=== PATIENT | female | born 1970 | race Caucasian/White ===

== ENCOUNTER 2016-10-12 14:44 | Emergency (ER) | payer OTHER ==
[~2016-10-12] VITALS: Ht 157.5 cm; Wt 98.0 kg
[~2016-10-12 14:44] MED LIST: ASPI81TA3 PO; BENA5TAB2 PO; IBUP-1542 PO; MAG355OR15 PO; METF500T PO; METO-407 PO; NITR-58 PO; SIMV-39 PO
[2016-10-12 15:05] VITALS: Ht 157.5 cm; Wt 98.0 kg
[2016-10-12] MEDS ORDERED: morphine 4 MG/ML VIAL IV STA ×2 (15:23→16:03)
[2016-10-12] MEDS ORDERED: FAMOTIDINE 20 MG INJ IV STA (15:23)
[2016-10-12] MEDS ORDERED: ONDANSETRON 4 MG INJ IV STA (15:23)
[2016-10-12] MEDS ORDERED: SOD CHLORIDE 0.9% 500 ML IV STA (15:23)
--- NOTE | 2016-10-12 15:33 | ERA ---
ER Documentation Chief Complaint Date/Time DATE: 10/12/16 TIME: 15:29 Chief Complaint cp pressure HPI Patient is a patient 46-year-old female who presents with sudden onset, constant , severe left-sided chest pain radiating to the left side of her back since 7 AM. She reports that she has had intermittent similar symptoms for the last 3- 4 months. She denies vomiting. She denies fever. She denies cough. She does report pain with deep inspiration. She denies abdominal pain. She reports epigastric pain. According to her son, she has had multiple visits to her PMD, Dr. Ochoa, and he is given her pain medications, but has not explained what the cause of her symptoms is. She is scheduled for a stress test. ROS All systems reviewed and are negative except as per history of present illness. Medications Home Meds Active Scripts Omeprazole* (Omeprazole*) 20 Mg Capsule., 20 MG PO DAILY, #14 Prov:RANDAL BROWN MD 10/12/16 Metoprolol Tartrate* (Lopressor*) 100 Mg Tab, 100 MG PO BID, #60 TAB 2 Refills Prov:MELISSA FRANCISCO MD 05/26/15 Reported Medications Metformin Hcl* (Metformin Hcl*) 500 Mg Tablet, 500 MG PO WITH MEALS, #90 TAB 10/12/16 Amlodipine Besylate* (Amlodipine Besylate*) 10 Mg Tablet, 10 MG PO QHS, #30 TAB 10/12/16 Discontinued Scripts Ibuprofen* (Ibuprofen*) 600 Mg Tablet, 600 MG PO Q8 for PAIN AND/OR INFLAMMATION , #30 TAB Prov:JOE DAVIES MD 09/20/15 Mag Hydrox/Al Hydrox/Simeth (Maalox Ms Liquid) 360 Ml Oral.susp, 2 TSP PO TID for PAIN, #24 OZ Prov:JOE DAVIES MD 09/20/15 Nitrofurantoin Monohyd Macrocr* (Macrobid*) 100 Mg Capsr, 100 MG PO BID for 7 Days, CAP Prov:JOE DAVIES MD 09/20/15 Simvastatin* (Simvastatin*) 80 Mg Tablet, 40 MG PO QHS, #30 TAB 2 Refills Prov:MELISSA FRANCISCO MD 05/26/15 Metformin Hcl (Glucophage) 500 Mg Tab, 1000 MG PO BID WITH MEALS, #60 TAB 2 Refills Prov:MELISSA FRANCISCO MD 05/26/15 Benazepril Hcl* (Benazepril Hcl*) 5 Mg Tab, 5 MG PO BID, #60 TAB 2 Refills Prov:MELISSA FRANCISCO MD 05/26/15 Aspirin (Aspirin) 81 Mg Chew, 81 MG PO DAILY, #30 TAB 5 Refills Prov:MELISSA FRANCISCO MD 05/26/15 Allergies Allergies: Coded Allergies: No Known Allergy (Unverified , 10/12/16) PMhx/Soc Past medical history: Diabetes mellitus, hypertension, hyperlipidemia, hypothyroidism, Kidney stones Past surgical history: Cholecystectomy Social history: Denies tobacco, alcohol or illicit drugs History of Surgery: Yes (dwain nunez 2014) Anesthesia Reaction: No Hx Neurological Disorder: No Hx Respiratory Disorders: No Hx Cardiac Disorders: Yes (htn) Hx Psychiatric Problems: No Hx Miscellaneous Medical Probl: Yes (DM ) Hx Alcohol Use: No Hx Substance Use: No Hx Tobacco Use: No FmHx Family History: diabetes, No coronary disease Physical Exam Vitals Vital Signs Date Time Temp Pulse Resp B/P Pulse Ox O2 Delivery O2 Flow Rate FiO2 10/12/16 17:23 99.1 73 18 152/91 98 Room Air 10/12/16 15:05 99.4 111 24 182/112 98 Physical Exam Const: Alert, in moderate distress Head: Atraumatic Eyes: Normal Conjunctiva, No pallor, no icterus ENT: Normal External Ears, Nose and Mouth .Mucous membranes moist Neck: Full range of motion..~ No meningismus. Resp: Clear to auscultation bilaterally Cardio: Regular rate and rhythm, no murmurs Abd: Soft, Tender in the epigastrium, no guarding or rebound, nondistended. Skin: No petechiae or rashes Back: No midline tenderness, left flank tenderness to light palpation as well as CVA tenderness. Ext: No cyanosis, or edema. 2+ radial pulses with no delay. Neur: Awake and alert, Cranial nerves II through XII intact bilaterally, strength and sensation full in 4 extremities. Psych: Appears anxious Result Diagram: 10/12/16 1535 10/12/16 1535 Results 24 hrs Laboratory Tests Test 10/12/16 15:35 10/12/16 16:15 White Blood Count 11.010^3/ul Red Blood Count 5.2810^6/ul Hemoglobin 15.7g/dl Hematocrit 43.8% Mean Corpuscular Volume 83.0fl Mean Corpuscular Hemoglobin 29.7pg Mean Corpuscular Hemoglobin Concent 35.8g/dl Red Cell Distribution Width 11.9% Platelet Count 64506^3/UL Mean Platelet Volume 9.6fl Neutrophils % 60.7% Lymphocytes % 30.4% Monocytes % 6.8% Eosinophils % 1.2% Basophils % 0.5% Nucleated Red Blood Cells % 0.0/100WBC Neutrophils # (Manual) 6.710^3/ul Lymphocytes # 3.310^3/ul Monocytes # 0.810^3/ul Eosinophils # 0.110^3/ul Basophils # 0.110^3/ul Nucleated Red Blood Cells # 0.010^3/ul Prothrombin Time 11.2Sec Prothrombin Time Ratio 0.9 INR International Normalized Ratio 0.81 Activated Partial Thromboplast Time 26.4Sec D-Dimer 443.30ng/ml D-Dimer Comment Sodium Level 140mmol/L Potassium Level 4.0mmol/L Chloride Level 104mmol/L Carbon Dioxide Level 22mmol/L Anion Gap 18 Blood Urea Nitrogen 20mg/dl Creatinine 0.91mg/dl Glucose Level 168mg/dl Calcium Level 10.2mg/dl Total Bilirubin 0.1mg/dl Direct Bilirubin 0.00mg/dl Indirect Bilirubin 0.1mg/dl Aspartate Amino Transf (AST/SGOT) 22IU/L Alanine Aminotransferase (ALT/SGPT) 30IU/L Alkaline Phosphatase 73IU/L Troponin I < 0.012ng/ml Total Protein 8.4g/dl Albumin 4.8g/dl Globulin 3.60g/dl Albumin/Globulin Ratio 1.33 Lipase 131U/L Thyroid Stimulating Hormone (TSH) 1.010MIU/L Serum HCG, Qualitative NEGATIVE Urine Color STRAW Urine Clarity CLEAR Urine pH 7.0 Urine Specific [place] 1.009 Urine Ketones TRACEmg/dL Urine Nitrite NEGATIVEmg/dL Urine Bilirubin NEGATIVEmg/dL Urine Urobilinogen NEGATIVEmg/dL Urine Leukocyte Esterase NEGATIVELeu/ul Urine Hemoglobin NEGATIVEmg/dL Urine Glucose NEGATIVEmg/dL Urine Total Protein NEGATIVEmg/dl Current Medications Medications (Trade) Dose Ordered Sig/Jose Route PRN Reason Start Time Stop Time Status Last Admin Dose Admin Sodium Chloride (NS) 500 ml @ 500 mls/hr Q1H STAT IV 10/12/16 15:23 10/12/16 16:22 DC 10/12/16 15:36 Morphine Sulfate (morphine) 4 mg ONCE STAT IV 10/12/16 15:23 10/12/16 15:25 DC 10/12/16 15:36 Ondansetron HCl (Zofran Inj) 4 mg ONCE STAT IV 10/12/16 15:23 10/12/16 15:25 DC 10/12/16 15:36 Famotidine (Pepcid Iv) 20 mg ONCE STAT IV 10/12/16 15:23 10/12/16 15:25 DC 10/12/16 15:36 Morphine Sulfate (morphine) 4 mg ONCE STAT IV 10/12/16 16:03 10/12/16 16:08 DC 10/12/16 17:01 Miscellaneous Medication (Gi Cocktail (2)) 40 ml ONCE ONCE PO 10/12/16 17:30 10/12/16 17:31 DC 10/12/16 17:23 Procedures/MDM EKG read by me: Time 1518, rate 101 Rhythm: Sinus tachycardia [place]: Normal Intervals: Normal ST-T waves: no ischemic changes Ectopy: No Q-waves: No Impression: No evidence of ischemia or arrhythmia MDM: Patient is a 46-year-old female who presents with constant epigastric and chest pain for approximately 8 hours. She initially reported that she has had this pain intermittently for the last 3-4 months, and that it is been worse for the last week. She has been seen recently by her PMD 5 days ago and was scheduled for an outpatient cardiology appointment. She has a nonischemic EKG and a negative troponin. There are no features that are concerning for her symptoms are not suggestive of PE or aortic dissection, and her d-dimer is not elevated. Her chest x-ray is unremarkable. She has tenderness in the epigastrium on exam, but normal lipase and LFTs. She is status post cholecystectomy. A CT scan of the abdomen was performed due to history of prior kidney stones, and shows no obstructing kidney stone. The patient does state that after receiving 2 doses of morphine, the patient continued to complain of significant pain, so I discussed the case with the patient's primary physician, Dr. Ochoa. She suggested admitting the patient for pain control and further workup. The patient did not want to be admitted and was planning to sign out AGAINST MEDICAL ADVICE. During discussion about differential diagnosis and risks, the patient stated that she has been having the same pain for the last year and a half. She states that she was scheduled to have an endoscopy 8-9 months ago, but did not follow through with it. She states that the pain is similar to pain that she had with prior kidney stones. Given the chronicity of the patient's pain and her negative workup today, I believe that she can be safely discharged home. I will avoid giving her oral narcotics given her lack of diagnosis. I do believe that she needs close follow -up and I suspect a GI etiology for her pain, such as peptic ulcer disease or gastritis. I will put her on omeprazole. I have advised her to follow-up tomorrow with her PMD, and to return to the ER if her symptoms worsen. On reassessment to discharge, the patient appeared comfortable. Her stated that he believes anxiety is a significant component of her recurrent symptoms. Departure Diagnosis: Primary Impression: Flank pain Additional Impression: Epigastric pain Condition: RANDAL Youssef MD Oct 12, 2016 15:33
[2016-10-12 15:59] LABS: BASOPHIL # 0.1 10^3/ul (0.0-0.1); BASOPHILS % 0.5 % (0.0-2.0); EOSINOPHILS # 0.1 10^3/ul (0.0-0.5); EOSINOPHILS % 1.2 % (0.0-7.0); HEMATOCRIT 43.8 % (37.0-47.0); HEMOGLOBIN 15.7 g/dl (12.0-16.0); LYMPHOCYTES # 3.3 10^3/ul (0.8-2.9); LYMPHOCYTES % 30.4 % (15.0-51.0); MEAN CORPUSCULAR HEMOGLOBIN 29.7 pg (29.0-33.0); MEAN CORPUSCULAR HGB CONC 35.8 g/dl (32.0-37.0); MEAN PLATELET VOLUME 9.6 fl (7.4-10.4); MONOCYTE # 0.8 10^3/ul (0.3-0.9); MONOCYTES % 6.8 % (0.0-11.0); NEUTROPHILS % 60.7 % (39.0-77.0); PLATELET COUNT 375 10^3/UL (140-415); RED BLOOD COUNT 5.28 10^6/ul (4.20-5.40); RED CELL DISTRIBUTION WIDTH 11.9 % (11.5-14.5)
[2016-10-12] MEDS ORDERED: AMLO-147 PO (16:07)
[2016-10-12] MEDS ORDERED: METF500T4 PO (16:07)
--- NOTE | 2016-10-12 16:09 | RADRPT ---
PROCEDURE: Portable chest x-ray. CLINICAL INDICATION: 46 years of age, female. Abdominal pain. TECHNIQUE: Portable AP view of the chest. COMPARISON: May 25, 2015 FINDINGS: Tortuous aorta. Borderline heart size. Decreased lung volumes with vascular crowding versus mild interstitial pulmonary edema. Negative for focal lung consolidation. Negative for pleural effusion or pneumothorax. No acute bony abnormality. Upper abdomen is unremarkable. IMPRESSION: Decreased lung volumes with vascular crowding versus mild edema. RPTAT: HCTS Physician Tiffanie Date Time Electronically viewed and signed by Physician Tiffanie on 10/12/2016 16:08 /
[2016-10-12 16:15] LABS: INR 0.81; PARTIAL THROMBOPLASTIN TIME 26.4 Sec (25.0-35.0); PROTIME 11.2 Sec (12.2-14.2); PT RATIO 0.9
[2016-10-12 16:16] LABS: ALANINE AMINOTRANSFERASE 30 IU/L (13-69); ALBUMIN 4.8 g/dl (3.3-4.9); ALBUMIN/GLOBULIN RATIO 1.33; ALKALINE PHOSPHATASE 73 IU/L (42-121); ANION GAP 18 (8-16); ASPARTATE AMINO TRANSFERASE 22 IU/L (15-46); BILIRUBIN,INDIRECT 0.1 mg/dl (0-1.1); BILIRUBIN,TOTAL 0.1 mg/dl (0.2-1.3); BLOOD UREA NITROGEN 20 mg/dl (7-20); CALCIUM 10.2 mg/dl (8.4-10.2); CARBON DIOXIDE 22 mmol/L (21-31); CHLORIDE 104 mmol/L (97-110); CREATININE 0.91 mg/dl (0.44-1.00); GLUCOSE 168 mg/dl (70-220); SODIUM 140 mmol/L (135-144); TOTAL PROTEIN 8.4 g/dl (6.1-8.1)
[2016-10-12 16:34] LABS: TROPONIN-I < 0.012 ng/ml (0.00-0.12)
[2016-10-12 16:54] LABS: D-DIMER 443.3 ng/ml (<460)
[2016-10-12 16:55] LABS: ADD UMIC NO; UR ASCORBIC ACID NEGATIVE (NEGATIVE); UR BILIRUBIN (Dip) NEGATIVE (NEGATIVE); UR BLOOD (Dip) NEGATIVE (NEGATIVE); UR CLARITY CLEAR (CLEAR); UR COLOR STRAW (YELLOW); UR GLUCOSE (Dip) NEGATIVE (NEGATIVE); UR KETONES (Dip) TRACE mg/dL (NEGATIVE); UR LEUKOCYTE ESTERASE (Dip) NEGATIVE Leu/ul (NEGATIVE); UR NITRITE (Dip) NEGATIVE (NEGATIVE); UR SPECIFIC GRAVITY (Dip) 1.009 (1.003-1.030); UR TOTAL PROTEIN (Dip) NEGATIVE (NEGATIVE); UR UROBILINOGEN (Dip) NEGATIVE (NEGATIVE)
[2016-10-12 17:23] VITALS: BP 152/91; PULSE 73; RESP 18; TEMP 99.1
[2016-10-12] MEDS ORDERED: LIDOCAINE/MYLANTA 40 ML BTL PO ONE (17:30)
--- NOTE | 2016-10-12 19:04 | RADRPT ---
PROCEDURE: CT Abdomen and Pelvis without contrast. CLINICAL INDICATION: Flank pain TECHNIQUE: CT of the abdomen and pelvis was performed on a multi-detector scanner without IV contr ast. Coronal and sagittal images were reformatted from the axial data set. One or more of the foll owing dose reduction techniques were used: automated exposure control, adjustment of the mA and/or k V according to patient size, use of iterative reconstruction technique. CTDI = 22.49 mGy. DLP = 127 9.29 mGy-cm. COMPARISON: CT, 09/20/2015 FINDINGS: The lung bases are clear. The heart size is normal, without pericardial effusion. The liver is enl arged (21 cm) and fatty infiltrated, without evidence of focal mass. Gallbladder is surgically abse nt. Biliary tree, pancreas, spleen and adrenal glands are unremarkable. Small bilateral nonobstruc tive renal calculi are identified measuring up to 2 mm. No ureterolithiasis or obstructive uropathy is seen. The stomach is grossly unremarkable. The aorta is of normal caliber. Aortic vascular calcifications are present. There is no retroperit joseph lymphadenopathy. The rayshawn hepatis region is clear. No bowel obstruction, free intraperitoneal air or abscess is identified. Scattered colonic divertic jayson are seen without diverticulitis. There is no appendicitis or colitis. Urinary bladder, uterus and adnexa are grossly unremarkable. No pelvic mass, free fluid or lymphadenopathy is identified. The surrounding osseous structures are unremarkable. No osteolytic or osteoblastic lesion is detect ed. IMPRESSION: 1. Hepatomegaly and severe hepatic steatosis are noted. 2. Small bilateral nonobstructive renal calculi are identified, without ureterolithiasis or obstruc tive uropathy. 3. Gallbladder is surgically absent. 4. Scattered aortoiliac atherosclerotic calcifications are present. 5. No mass, lymphadenopathy, or focal acute inflammatory process is identified. RPTAT: HDWR .Reji Roberto MD, MD Date Time Electronically viewed and signed by .Reji Roberto MD, MD on 10/12/2016 18:50 .R/
[2016-10-12] MEDS ORDERED: OMEP20CA16 PO (20:14)
== END 2016-10-12 20:26 | disposition home or self-care (01) ==
LOC: E/R 14:44
DX: R10.13 Epigastric pain (principal); E11.9 Type 2 diabetes mellitus without complications; I10 Essential (primary) hypertension; E03.9 Hypothyroidism, unspecified; Z79.82 Long term (current) use of aspirin; Z79.84 Long term (current) use of oral hypoglycemic drugs
CPT/HCPCS: 36415; 71010; 74176; 80053; 81003; 83690; 84443; 84484; 84703; 85025; 85378; 85610; 85730; 93005; 96374; 96375; 96376; J2270; J2405; J7040; Z7502; Z7610

== ENCOUNTER 2017-03-29 15:05 | Emergency (ER) | END 2017-03-29 21:57 | disposition home or self-care (01) ==

== ENCOUNTER 2017-10-05 16:20 | Emergency (ER) | END 2017-10-05 20:40 | disposition home or self-care (01) ==

== ENCOUNTER 2017-10-11 15:32 | Emergency (ER) | END 2017-10-11 19:58 | disposition home or self-care (01) ==

== ENCOUNTER 2018-04-04 19:20 | Emergency (ER) | payer OTHER ==
[~2018-04-04] VITALS: Ht 157.5 cm; Wt 93.0 kg
[~2018-04-04 19:20] MED LIST changes: +AMLO-147 PO; -ASPI81TA3 PO; -BENA5TAB2 PO; +CIPR500T4 PO; +CLON0.2T5 PO; +CLONIDINE PATCH TD; +DOXY100T21 PO; +ERGO500013 PO; +HYDR-3980 PO; -IBUP-1542 PO; -MAG355OR15 PO; -METF500T PO; +METF500T24 PO; +METR-122 PO; -NITR-58 PO; +OMEP20CA16 PO; +ONDA4TAB14 PO; +OXYC-279 PO; -SIMV-39 PO
[2018-04-04 19:38] VITALS: Ht 157.5 cm; Wt 93.0 kg
--- NOTE | 2018-04-04 21:14 | ERD ---
ER Documentation Chief Complaint Chief Complaint LLQ & LUQ X 5 DAYS HPI 47-year-old female with a history of diabetes, hypertension and hyperlipidemia presents to the ED complaining of a 5-day history of severe, intermittent, left upper quadrant pain which radiates around to the back. Patient has had similar symptoms intermittently for approximately 5 years and multiple prior workups been unremarkable. Denies chest pain, palpitations or shortness of breath. No nausea, vomiting, diarrhea or constipation. Denies dysuria, polyuria or hematuria. No vaginal discharge or bleeding. No relieving or exacerbating factors. No fevers or chills. ROS All systems reviewed and are negative except as per history of present illness. Medications Home Meds Active Scripts Hydrocodone/Acetaminophen ([place] 10-325 Tablet) 1 Each Tablet, 1 TAB PO Q6H PRN for PAIN, #20 TAB Prov:PAUL LEE. DO 10/11/17 Ondansetron (Ondansetron Odt) 4 Mg Tab.rapdis, 4 MG PO Q6H PRN for NAUSEA AND/OR VOMITING, #10 TAB Prov:PAUL LEE DO 10/11/17 Ciprofloxacin Hcl* (Ciprofloxacin Hcl*) 500 Mg Tablet, 500 MG PO BID for 7 Days, TAB Prov:PAUL LEE DO 10/11/17 Ondansetron (Ondansetron Odt) 4 Mg Tab.rapdis, 4 MG PO Q6H PRN for NAUSEA AND/OR VOMITING, #10 TAB Prov:ELBERT TERRELL MD 10/05/17 Hydrocodone/Acetaminophen ([place] 10-325 Tablet) 1 Each Tablet, 1 TAB PO Q6H PRN for PAIN, #7 TAB Prov:ELBERT TERRELL MD 10/05/17 Reported Medications Oxycodone HCl/Acetaminophen (Percocet 5-325 mg Tablet) 1 Each Tablet, 1 EACH PO TID, TAB 10/11/17 Doxycycline Monohydrate* (Doxycycline Monohydrate*) 100 Mg Tablet, 100 MG PO BID, TAB 10/11/17 Metronidazole* (Metronidazole*) 500 Mg Tablet, 500 MG PO QID, TAB 10/11/17 [Clonidine Patch] No Conflict Check, 0.1 MG TD Q7D 10/11/17 Clonidine Hcl* (Clonidine Hcl*) 0.2 Mg Tablet, 0.2 MG PO Q8H, TAB 10/11/17 Omeprazole* (Omeprazole*) 20 Mg Capsule.dr, 20 MG PO DAILY, #30 CAP 10/11/17 Metoprolol Tartrate* (Lopressor*) 100 Mg Tablet, 100 MG PO BID, #60 TAB 10/11/17 Metformin Hcl* (Metformin Hcl*) 500 Mg Tablet, 500 MG PO WITH MEALS, #90 TAB 10/11/17 Ergocalciferol (Vitamin D2) (VITAMIN D2) 50,000 Unit Capsule, 32860 UNIT PO Q7D, CAP 10/11/17 Amlodipine Besylate* (Amlodipine Besylate*) 10 Mg Tablet, 10 MG PO QHS, #30 TAB 10/11/17 Allergies Allergies: Coded Allergies: No Known Allergy (Unverified , 10/11/17) PMhx/Soc History of Surgery: Yes (enrique, appendectomy ) Anesthesia Reaction: No Hx Neurological Disorder: No Hx Respiratory Disorders: No Hx Cardiac Disorders: Yes (htn) Hx Psychiatric Problems: No Hx Miscellaneous Medical Probl: Yes (dm) Hx Alcohol Use: No Hx Substance Use: No Hx Tobacco Use: No FmHx No stroke or cancer Physical Exam Vitals Vital Signs Date Temp Pulse Resp B/P (MAP) Pulse Ox O2 O2 Flow FiO2 Time Delivery Rate 04/04/18 99.5 116 24 235/115 97 19:38 (155) Physical Exam Const: No acute distress Head: Atraumatic Eyes: Normal Conjunctiva ENT: Normal External Ears, Nose and Mouth. Neck: Full range of motion. No midline bony tenderness or paraspinal muscle spasm. No lymphadenopathy.. Resp: Clear to auscultation bilaterally Cardio: Regular rate and rhythm, no murmurs Abd: Soft, obese, left upper quadrant tenderness but no rebound or guarding. Non distended. No masses or abnormal pulsations. Normal bowel sounds Skin: No petechiae or rashes Back: No midline or flank tenderness Ext: No cyanosis, or edema. Pulses 4+ in all extremities Neur: Awake and alert Psych: Anxious but not depressed. Result Diagram: 04/04/18213404/04/182134 Results 24 hrs Laboratory Tests Test 04/04/18 21:35 04/04/18 22:30 White Blood Count 10.5 10^3/ul Red Blood Count 5.57 10^6/ul Hemoglobin 16.1 g/dl Hematocrit 46.0 % Mean Corpuscular Volume 82.6 fl Mean Corpuscular Hemoglobin 28.9 pg Mean Corpuscular Hemoglobin Concent 35.0 g/dl Red Cell Distribution Width 11.9 % Platelet Count 359 10^3/UL Mean Platelet Volume 9.5 fl Immature Granulocytes % 0.300 % Neutrophils % 52.4 % Lymphocytes % 39.6 % Monocytes % 5.9 % Eosinophils % 1.4 % Basophils % 0.4 % Nucleated Red Blood Cells % 0.0 /100WBC Immature Granulocytes # 0.030 10^3/ul Neutrophils # 5.5 10^3/ul Lymphocytes # 4.1 10^3/ul Monocytes # 0.6 10^3/ul Eosinophils # 0.2 10^3/ul Basophils # 0.0 10^3/ul Nucleated Red Blood Cells # 0.0 10^3/ul Sodium Level 142 mmol/L Potassium Level 3.6 mmol/L Chloride Level 102 mmol/L Carbon Dioxide Level 23 mmol/L Anion Gap 17 Blood Urea Nitrogen 16 mg/dl Creatinine 0.60 mg/dl Est Glomerular Filtrat Rate mL/min > 60 mL/min Glucose Level 126 mg/dl Calcium Level 10.8 mg/dl Total Bilirubin 0.2 mg/dl Direct Bilirubin 0.00 mg/dl Indirect Bilirubin 0.2 mg/dl Aspartate Amino Transf (AST/SGOT) 50 IU/L Alanine Aminotransferase (ALT/SGPT) 46 IU/L Alkaline Phosphatase 91 IU/L Total Protein 9.1 g/dl Albumin 5.1 g/dl Globulin 4.00 g/dl Albumin/Globulin Ratio 1.27 Lipase 69 U/L Urine Color YELLOW Urine Clarity CLEAR Urine pH 6.0 Urine Specific [place] 1.012 Urine Ketones TRACE mg/dL Urine Nitrite NEGATIVE mg/dL Urine Bilirubin NEGATIVE mg/dL Urine Urobilinogen NEGATIVE mg/dL Urine Leukocyte Esterase NEGATIVE Laura/ul Urine Microscopic RBC 0 /HPF Urine Microscopic WBC 0 /HPF Urine Bacteria FEW /HPF Urine Mucus FEW /HPF Urine Hemoglobin NEGATIVE mg/dL Urine Glucose NEGATIVE mg/dL Urine Total Protein 1+ mg/dl Current Medications Medications Dose Sig/Jose Start Time Status Last (Trade) Ordered Route PRN Stop Time Admin Dose Reason Admin Sodium 1,000 ml @ Q1H STAT 04/04/18 DC 04/04/18 Chloride 1,000 mls/hr IV 21:20 21:37 04/04/18 22:19 Morphine 4 mg ONCE STAT 04/04/18 DC 04/04/18 Sulfate IV 21:20 21:37 (morphine) 04/04/18 21:22 Ondansetron 4 mg ONCE STAT 04/04/18 DC 04/04/18 HCl (Zofran IV 21:20 21:35 Inj) 04/04/18 21:22 Ketorolac 15 mg ONCE STAT 04/04/18 DC 04/04/18 Tromethamine IV 21:20 21:36 (Toradol) 04/04/18 21:22 0.5 mg ONCE STAT 04/05/18 DC Hydromorphone IV 00:15 HCl 04/05/18 00:17 (Dilaudid) Procedures/MDM DOCUMENTS REVIEWED: ED nurse, prior ED, prior records including multiple prior CAT scans. IMAGING: PROCEDURE: US Pelvis. CLINICAL INDICATION: Abdominal pain. TECHNIQUE: Multiple sonographic images of the pelvis were obtained utilizing a transabdominal and endovaginal technique. There is limited evaluation on the transvaginal examination due to a full bladder. The images were reviewed on a PACS workstation. COMPARISON: None available at the time of dictation. FINDINGS: The uterus is visualized and measures 6.3 x 2.7 x 4.1 cm. There is diffuse homogenous hypoechoic echotexture of the uterine wall. No fibroid is seen. The endometrial echo complex is normal and measures 6 mm. No focal endometrial abnormality is seen. There is no evidence for free fluid. No adnexal masses are noted. The right ovary was unable to be visualized due to overlying bowel gas. The left ovary has a normal echotexture and measures 2.8 x 1.3 x 1.9 cm. There is normal Doppler flow. There is a prominent corpus lutein cyst measuring 15 mm. IMPRESSION: 1. Normal sonographic findings of the uterus and left ovary. 2. Corpus cyst in the left ovary, benign appearance. 3. The right ovary was unable to be evaluated due to overlying bowel gas. RPTAT: HGAS .Eduardo Kessler MD, MD Date Time Electronically viewed and signed by .Eduardo Kessler MD, on 04/04/2018 22:27 . Stable for discharge with precautionary instructions and outpatient follow-up as counseled. MEDICAL DECISION MAKIN-year-old female with a history of diabetes, hypertension and hyperlipidemia presents to the ED complaining of a 5-day history of severe, intermittent, left upper quadrant pain which radiates around to the back. CBC is unremarkable for leukocytosis or anemia. Chemistry reveals no evidence of electrolyte abnormalities or renal insufficiency. Liver function tests are unremarkable for transaminitis or hyperbilirubinemia. Lipase is not elevated. Patient presents with chronic recurrent left upper quadrant pain of uncertain etiology. She has had multiple prior CAT scans, most recently March, September and October 2017 that have failed to yield a diagnosis of her symptoms. Ultrasound of the pelvis was performed today to evaluate for uterine and ovarian pathology including cyst, mass and torsion is unremarkable. No skin rash or signs of zoster. Postherpetic neuralgia is considered but patient does not recall ever having shingles. She required multiple doses of intravenous opiates for pain control. In the absence of signs of serious, acute illness symptomatic treatment is appropriate. Stable for discharge with precautionary instructions and outpatient follow-up as counseled. Though the patient's latest blood pressure was elevated (>120/80), the patient has a known history of hypertension and urged to pursue adjustment of their medical therapy within a week with their primary care physician. Please refer to the medication reconciliation form for the current list of hypertensive medications. Counseled patient and regarding diagnostic workup, diagnosis and need for followup. They understand that the etiology of her symptoms is not established and urgent, outpatient follow-up is mandatory or return to the ED if symptoms worsen or recur. Refer to pain management. Departure Diagnosis: Primary Impression: Acute abdominal pain in left upper quadrant Additional Impression: Abdominal pain of unknown etiology Condition: PAPA Espinosa MD Apr 04, 2018 21:14
[2018-04-04] MEDS ORDERED: KETOROLAC 15 MG INJ IV STA (21:20)
[2018-04-04] MEDS ORDERED: morphine 4 MG/ML VIAL IV STA (21:20)
[2018-04-04] MEDS ORDERED: SOD CHLORIDE 0.9% 1,000 ML IV STA (21:20)
[2018-04-04] MEDS ORDERED: ONDANSETRON 4 MG INJ IV STA (21:20)
[2018-04-05] MEDS ORDERED: HYDROmorphONE 0.5 MG/0.5 ML SYG IV STA (00:15)
[2018-04-05 00:32] VITALS: BP 149/90; PULSE 87; RESP 15
== END 2018-04-05 00:53 | disposition home or self-care (01) ==
LOC: E/R 19:20
DX: R10.32 Left lower quadrant pain (principal); R10.12 Left upper quadrant pain; E11.9 Type 2 diabetes mellitus without complications; I10 Essential (primary) hypertension; Z79.84 Long term (current) use of oral hypoglycemic drugs
CPT/HCPCS: 36415; 71045; 76830; 76856; 80053; 81001; 83690; 85025; 96374; 96375; J1170; J1885; J2270; J2405; J7030; Z7502; Z7610

== ENCOUNTER 2018-05-10 22:24 | Emergency (ER) | payer OTHER ==
[~2018-05-10] VITALS: Ht 157.5 cm; Wt 80.0 kg
[2018-05-10 22:38] VITALS: Ht 157.5 cm; Wt 80.0 kg
--- NOTE | 2018-05-11 02:12 | ERD ---
ER Documentation Chief Complaint Chief Complaint R ankle/foot pain after fall down 1 stair 3 days ago HPI The patient is a 47-year-old female, presenting to the ER because of right ankle and right foot pain after she fell down 4 stairs 3 days ago, denies any other injury, denies headache, neck pain, chest pain, dyspnea, abdominal pain, vomiting. Past medical history: Hypertension, diabetes mellitus Past surgical history: Cholecystectomy, appendectomy ROS All systems reviewed and are negative except as per history of present illness. Medications Home Meds Active Scripts Hydrocodone/Acetaminophen ([place] 5-325 Tablet) 1 Each Tablet, 1 TAB PO Q6H PRN for PAIN, #7 TAB Prov:RODNEY MOORE MD 05/11/18 Ibuprofen* (Motrin*) 600 Mg Tab, 600 MG PO Q6H PRN for PAIN, #30 TAB Prov:RODNEY MOORE MD 05/11/18 Hydrocodone/Acetaminophen ([place] 10-325 Tablet) 1 Each Tablet, 1 TAB PO Q6H PRN for PAIN, #20 TAB Prov:PAUL LEE DO 10/11/17 Ondansetron (Ondansetron Odt) 4 Mg Tab.rapdis, 4 MG PO Q6H PRN for NAUSEA AND/OR VOMITING, #10 TAB Prov:PAUL LEE DO 10/11/17 Ciprofloxacin Hcl* (Ciprofloxacin Hcl*) 500 Mg Tablet, 500 MG PO BID for 7 Days, TAB Prov:PAUL LEE DO 10/11/17 Ondansetron (Ondansetron Odt) 4 Mg Tab.rapdis, 4 MG PO Q6H PRN for NAUSEA AND/OR VOMITING, #10 TAB Prov:ELBERT TERRELL MD 10/05/17 Hydrocodone/Acetaminophen ([place] 10-325 Tablet) 1 Each Tablet, 1 TAB PO Q6H PRN for PAIN, #7 TAB Prov:ELBERT TERRELL MD 10/05/17 Reported Medications Oxycodone HCl/Acetaminophen (Percocet 5-325 mg Tablet) 1 Each Tablet, 1 EACH PO TID, TAB 10/11/17 Doxycycline Monohydrate* (Doxycycline Monohydrate*) 100 Mg Tablet, 100 MG PO BID, TAB 10/11/17 Metronidazole* (Metronidazole*) 500 Mg Tablet, 500 MG PO QID, TAB 10/11/17 [Clonidine Patch] No Conflict Check, 0.1 MG TD Q7D 10/11/17 Clonidine Hcl* (Clonidine Hcl*) 0.2 Mg Tablet, 0.2 MG PO Q8H, TAB 10/11/17 Omeprazole* (Omeprazole*) 20 Mg Capsule.dr, 20 MG PO DAILY, #30 CAP 10/11/17 Metoprolol Tartrate* (Lopressor*) 100 Mg Tablet, 100 MG PO BID, #60 TAB 10/11/17 Metformin Hcl* (Metformin Hcl*) 500 Mg Tablet, 500 MG PO WITH MEALS, #90 TAB 10/11/17 Ergocalciferol (Vitamin D2) (VITAMIN D2) 50,000 Unit Capsule, 51193 UNIT PO Q7D, CAP 10/11/17 Amlodipine Besylate* (Amlodipine Besylate*) 10 Mg Tablet, 10 MG PO QHS, #30 TAB 10/11/17 Allergies Allergies: Coded Allergies: No Known Allergy (Unverified , 10/11/17) PMhx/Soc History of Surgery: Yes (enrique, appendectomy ) Anesthesia Reaction: No Hx Neurological Disorder: No Hx Respiratory Disorders: No Hx Cardiac Disorders: Yes (htn) Hx Psychiatric Problems: No Hx Miscellaneous Medical Probl: Yes (dm) Hx Alcohol Use: No Hx Substance Use: No Hx Tobacco Use: No Physical Exam Vitals Vital Signs Date Temp Pulse Resp B/P (MAP) Pulse Ox O2 O2 Flow FiO2 Time Delivery Rate 05/10/18 98.3 98 24 135/80 97 22:38 (98) Physical Exam Const: No acute distress. Head: Atraumatic. Eyes: Normal Conjunctiva. ENT: Normal External Ears, Nose and Mouth. Neck: Full range of motion. No meningismus. Resp: Clear to auscultation bilaterally. Cardio: Regular rate and rhythm. Abd: Soft, non distended, normal bowel sounds, non tender. Skin: No petechiae or rashes. Back: No midline or flank tenderness. Ext: No cyanosis, or edema. Right ankle and right foot edematous with vague tenderness, no skin violation, superficial abrasion, no calf tenderness Neur: Awake and alert. No focal deficit Psych: Normal Mood and Affect. Results 24 hrs Current Medications Medications Dose Sig/Jose Start Time Status Last (Trade) Ordered Route PRN Stop Time Admin Dose Reason Admin 1 tab ONCE ONCE 05/11/18 DC 05/11/18 Acetaminophen PO 03:00 05/11/18 02:47 / 03:01 Hydrocodone Bitart ([place] ()) Ondansetron 4 mg ONCE STAT 05/11/18 DC 05/11/18 HCl (Zofran ODT 02:38 05/11/18 02:47 Odt) 02:40 Procedures/MDM [place] [id number] Radiology Main Line: [phone] DIAGNOSTIC IMAGING REPORT Patient: JORGE MCNEIL : 1970 Age: 47 Sex: F MR #: [id number] DOS: 05/11/188 Ordering MD: RODNEY MOORE MD Location: E/R Room/Bed: PROCEDURE: XR Right Ankle. CLINICAL INDICATION: Pain TECHNIQUE: AP, oblique and lateral views of the right ankle were performed. COMPARISON: None. FINDINGS: There is normal mineralization and alignment. No acute fracture or osseous lesion is identified. The joints are normal. The ankle mortise is intact. There is diffuse soft tissue swelling. IMPRESSION: No acute osseous abnormality. Diffuse soft tissue swelling. [facility] Physician Paola Date Time Electronically viewed and signed by Physician Paola on 05/11/2018 03:58 CS/ CC: RODNEY MOORE MD [id number] [place] [id number] Radiology Main Line: [phone] DIAGNOSTIC IMAGING REPORT Patient: JORGE MCNEIL : 1970 Age: 47 Sex: F MR #: [id number] DOS: 05/11/188 Ordering MD: RODNEY MOORE MD Location: E/R Room/Bed: PROCEDURE: XR Foot. CLINICAL INDICATION: Pain TECHNIQUE: AP, lateral and oblique views of the left foot was obtained. The images were reviewed on a PACS workstation. COMPARISON: None. FINDINGS: The bones of the foot appear intact, with no evidence of acute fracture, dislocation, or subluxation. The joint spaces are preserved. Bone mineralization is normal. There is diffuse soft tissue swelling. IMPRESSION: Diffuse soft tissue swelling. No acute osseous abnormality. [facility] Physician Paola Date Time Electronically viewed and signed by Physician Paola on 05/11/2018 03:57 CS/ CC: RODNEY MOORE MD [id number] MEDICAL MAKING DECISION: The patient is a 47-year-old female, presenting with acute right ankle and acute right foot pain, was treated with [place] 10 mg p.o. for pain and Zofran ODT for nausea, Osman wrap and crutches. She is stable for outpatient follow-up The differential diagnoses considered include but are not limited to fracture, contusion, sprain, internal derangement Departure Diagnosis: Primary Impression: Right foot injury Additional Impression: Right ankle injury Condition: Good Comments She was discharged with [place], Motrin I discussed the findings with the patient. I advised the patient to follow-up with the primary physician in about 2-3 days, sooner if needed and return if any concern, advised that if the pain is persistent, she would need MRI for further evaluation Disclaimer: Inadvertent spelling and grammatical errors are likely due to EHR/dictation software use and do not reflect on the overall quality of patient care. Also, please note that the electronic time recorded on this note does not necessarily reflect the actual time of the patient encounter. RODNEY MOORE MD May 11, 2018 02:12
[2018-05-11] MEDS ORDERED: ONDANSETRON (ODT) 4 MG TAB ODT STA (02:38)
[2018-05-11] MEDS ORDERED: HYDROCODONE/APAP (10/325) TAB PO ONE (03:00)
[2018-05-11] MEDS ORDERED: IBUP-1542 PO (04:14)
[2018-05-11] MEDS ORDERED: HYDR-4011 PO (04:14)
[2018-05-11 04:25] VITALS: BP 158/85; PULSE 91; RESP 18
== END 2018-05-11 04:40 | disposition home or self-care (01) ==
LOC: E/R 22:24
DX: S90.511A Abrasion, right ankle, initial encounter (principal); I10 Essential (primary) hypertension; E11.9 Type 2 diabetes mellitus without complications; S90.811A Abrasion, right foot, initial encounter; W10.9XXA Fall (on) (from) unspecified stairs and steps, initial encounter; Y92.9 Unspecified place or not applicable; Z79.84 Long term (current) use of oral hypoglycemic drugs
CPT/HCPCS: 73610; 73630; Z7502; Z7610